=== PATIENT | female | born 1940 | race Caucasian/White ===

== ENCOUNTER 2023-05-10 07:10 | Day surgery (SDC) | payer OTHER, SELFPAY ==
[2023-05-10 08:01] VITALS: BMI 23.9
--- NOTE | 2023-05-10 10:30 | ITS.CL.CARDI ---
Addendum entered and electronically signed by Albert Amin MD 05/10/23 10:35:
Correction:
200 joule and subsequent 360 joule biphasic synchronized shocks were delivered
Original Note:
Barrel Drainer - Cardioversion
Cardioversion
Procedure Report:
Procedure: JORGE-guided electrical cardioversion
Pre-operative diagnosis: Persistent atrial fibrillation
Post-operative diagnosis: Persistent atrial fibrillation status post DC cardioversion to sinus rhythm
Anesthesia: MAC
Attending Physician: Albert Amin MD
Procedure Description: The patient was brought to the electrophysiology laboratory in the fasting state. Informed consent was obtained from the patient prior to the start of the procedure. Adherence to anticoagulation was confirmed. Electrodes were
placed on the patient and connected to an external defibrillator. Monitoring of blood pressure, ECG tracings, and pulse oximetry was initiated. The pads were applied to the patient in the anterior and posterior positions. The patient was sedated by
the anesthesiologist. A JORGE (reported separately) was performed prior to the cardioversion. No left atrial or left atrial appendage thrombus was seen. After the JORGE probe was removed 300 joule, 360 joule and subsequent 360 biphasic synchronized
shocks were delivered to the patient under MAC anesthesia. Sinus rhythm was successfully restored. The patient recovered uneventfully from MAC anesthesia. There were no immediate post-procedure complications. The patient left the lab in good
condition. The attending physician was present throughout the entire procedure.
Impression: Successful JORGE-guided direct current cardioversion with church of sinus rhythm after 300 joule, 360 joule and subsequent 360 joule biphasic synchronized shocks.
== END 2023-05-10 10:00 | disposition home or self-care (01) ==
LOC: CATH 07:10
PROVIDERS: ATTENDING PHYSICIAN Internal Medicine Cardiovascular Disease; FAMILY PHYSICIAN Family Medicine; OTHER PHYSICIAN Internal Medicine Interventional Cardiology
DX: I48.19 Other persistent atrial fibrillation (principal); Z86.73 Personal history of transient ischemic attack (TIA), and cerebral infarction without residual deficits; I08.1 Rheumatic disorders of both mitral and tricuspid valves; I70.0 Atherosclerosis of aorta
CPT/HCPCS: 93312; 93320; 93325; 92960; 93005

== ENCOUNTER → 2023-06-21 10:28 | Outpatient (REF) | payer OTHER, SELFPAY | LOC: RAD 10:28 | PROVIDERS: ATTENDING PHYSICIAN Family Medicine | DX: R05.9 Cough, unspecified (principal) | CPT/HCPCS: 71046 ==

== ENCOUNTER 2023-08-27 05:55 | Day surgery (SDC) | payer OTHER, SELFPAY ==
[2023-08-14 10:50] LABS: % Basophils 0.4 % (0-2); % Immature Granulocytes 0.3 % (0-0.5); % Lymphocytes 18.3 % (20.5-51.1); % Monocytes 8.6 % (1.7-9.3); % Neutrophils 71.4 % (42.2-75.2); Absolute Eosinophils 0.1 10^3/uL (0-0.7); Absolute Lymphocytes 1.3 10^3/uL (1.2-3.4); Absolute Monocytes 0.6 10^3/uL (0.1-0.6); Absolute Neutrophils 5.2 10^3/uL (1.4-6.5); Hematocrit 45.6 % (37.0-47.0); Hemoglobin 14.9 g/dL (12.0-16.0); Mean Corp Hgb Conc. 32.7 g/dL (33.0-37.0); Mean Corpuscular Hgb 29.2 pg (27.0-31.0); Mean Corpuscular Volume 89.2 fL (81.0-99.0); Mean Platelet Volume 11.9 fL (7.4-10.4); Nucleated Red Blood Cells % 0 %; Platelet Count 164 10^3/uL (130-400); Red Blood Cell Count 5.11 10^6/uL (4.20-5.40); Red Cell Dist. Width 15.8 % (11.5-14.5); White Blood Cell Count 7.2 10^3/uL (4.8-10.8)
[2023-08-14 10:58] LABS: INR 1.35; PT 16.7 Sec (11.4-14.6)
[2023-08-14 11:01] LABS: ALT (SGPT) 24 U/L (0-35); AST (SGOT) 25 U/L (14-36); Albumin 4.4 g/dl (3.5-5.0); Alkaline Phosphatase 103 U/L (38-126); Blood Urea Nitrogen 27 mg/dl (7-17); Calcium 9.6 mg/dl (8.4-10.2); Carbon Dioxide 29 mmol/L (22-30); Chloride 97 mmol/L (98-107); Glucose 98 mg/dl (70-99); Potassium 4.3 mmol/L (3.5-5.1); Sodium 133 mmol/L (135-145); Total Bilirubin 0.7 mg/dl (0.2-1.3); Total Protein 7.2 g/dl (6.3-8.2); eGFR > 60.00
[2023-08-14 12:31] VITALS: BMI 23.1
[2023-08-27] VITALS (21 sets, daily range): BP systolic 118–174; BP diastolic 63–142
[2023-08-27] MEDS: TYLENOL 1000 MG PO (07:04)
--- NOTE | 2023-08-27 07:22 | ITS.CL.ABL ---
Golf Cart Assembler - Ablation
Ablation
Procedure Report:
Primary Exhibitions And Collections Manager: Ruperto Arias MD
Procedure Date: 08/27/2023
Patient History:
Patient is a pleasant 83-year-old female with a past medical history significant for hypertension, hypercholesterolemia, osteoporosis, history of tobacco use, bladder cancer, polymyalgia rheumatica, and symptomatic persistent atrial fibrillation.
See H&P for complete details.
Indication:
Symptomatic persistent atrial fibrillation
Arrhythmia Specific History:
Prior Medical Therapies for Rate and Rhythm Control:
[ ] Beta-mariangel
X Calcium channel-mariangel
[ ] Amiodarone
[ ] Dronederone
[ ] Sotalol
[ ] Flecainide
[ ] Dofetilide
[ ] Options limited by bradycardia
[ ] Options limited by comorbid renal disease
Prior Procedural Therapies for AF/AFL:
X Cardioversion
[ ] Pulmonary Vein Isolation
[ ] Posterior Wall Isolation
[ ] Additional lines (Specify)
[ ] Surgical Hall-MAZE or PVI (Specify)
Procedure Performed:
[ ] AF ablation procedure (10390) -- includes LA/CS pacing, trans-septal, 3D mapping, + ICE
[ ] +IV drug (80380)
[ ] +Other Arrhythmia (31766)
[ ] +Other AF Line/ablation (74841)
Risks and expected recovery has been explained in detail. Alternative options have been explored, and in a shared-decision making fashion we have decided that this was the most appropriate procedure.
Method
NPO status confirmed. Grounding pad applied. Defibrillator pads applied. Continuous surface ECG, pulse oximetry, and blood pressure were monitored. Procedure was performed under general anesthesia, with anesthesia services.
Both groins were clipped, prepped with Chloraprep, and draped in sterile fashion. Time out was called. Local anesthesia administered with bupivacaine. The right and left femoral veins were accessed for catheter placement, using ultrasound guidance,
micro-puncture needle/wire, and modified seldinger technique. 3 sheaths were placed. The following catheters were used:
[ ] Tacticath SE (D/F Curve) ablation catheter
X Viewflex 9Fr ICE catheter
X Inquiry decapolar 6Fr diagnostic catheter
[ ] CRD Hex 6Fr
[ ] Arctic Front Advance Cryoballoon ([ ]28mm[ ]23mm)
[ ] Achieve Advance mapping catheter ([ ]15mm[ ]20mm)
X FlexCath Contour 10 Fr with PulseSelect PFA Catheter
X Advisor HD Grid Mapping Catheter, SE
[ ] Acuson AcuNav 8 Fr ICE catheter
[ ]Other: [ ]
Intracardiac ultrasound (ICE) was carefully advanced into the right atrium to guide sheath placement over a J-wire, catheter placement, guide trans-septal puncture, identify potential complications, identify anatomic structures and ensure proper
contact between ablation catheter and tissue. A trace posterior located pericardial effusion behind RV and LV was noted at initiation of case and remained unchanged throughout the case and at case completion.
Heparin was given prior to trans-septal puncture. Heparin was given to achieve and maintain a target ACT of 300-400 seconds throughout the procedure.
Trans-septal access was performed under ICE guidance. The trans-septal puncture was performed with a SafeSept wire through a Brockenbrough needle assembly through the steerable sheath. The wire was visualized as it entered the LSPV and system
advanced under ICE guidance and fluoroscopy into the LA. The Brockenbrough needle assembly, SafeSept wire and sheath dilator were removed under negative pressure. LA pressure was measured and recorded. Coronary sinus activation demonstrated
irregular fast pattern consistent with atrial fibrillation no organized electrical activity.
ICE and 3D mapping was performed to identify relevant cardiac structures. A careful 3D map was created to assess for regions of low-voltage and abnormal electrogram signals using HD grid mapping catheter and PulseSelect catheter. Additional mapping
was performed as outlined below.
Prior to ablation, glycopyrrolate was provided. PulseSelect catheter was advanced over J-wire to the ostium of each vein. Pulmonary vein isolation was performed with ostial and antral lesions in a circumferential manner. Contact was visualized via
EAM, ICE, fluoroscopy, and EGM signals. Posterior wall isolation was performed by anchoring the J-wire within the pulmonary vein and placing the PulseSelect catheter in contact with the posterior wall as visualized by aforementioned methods.
Following completion of ablation lesions, sinus rhythm was restored during pulmonary vein isolation ablation and a post-ablation voltage/activation map was performed in sinus rhythm. Entrance and exit block were confirmed for each vein and the
posterior wall.
Catheter and sheath were removed from the left atrium and post-ablation intracardiac echo evaluation was consistent with pre-ablation with no changes and no change to the pericardial effusion and there is no left atrial thrombus or left ventricle
thrombus seen. Electrophysiology study was performed. Hemostasis was obtained with figure of 8 stitch for each groin and with manual pressure. Protamine was used for reversal.
Estimated Blood Loss
5-10 mL
Complications
None
Fluoroscopy: 2.5 minutes; 6.13 mGy; DAP 0.762
Baseline Intervals:
Rhythm: AF
QRS: 74 ms
Post-Procedure Intervals:
MO: 173 ms
QRS: 67 ms
QT: 393 ms
QTc: 400 ms
AVWB: 390 ms
AERP: 600/250 ms
Recommendations
- Bedrest with straight-leg precautions as ordered
- Admit with anticipate discharge home tomorrow after overnight observation
- Resume home medications as indicated
- Ok to resume anticoagulation tonight if patient and groin sites stable
- PPI daily for 30 days
- Plan for follow-up in office with Dr Arias
Chandan Madden,
Clinical Cardiac Gas Processing Plant Operator
cc: Ruperto Arias MD; Orlando Wall MD
[2023-08-27 08:42] LABS: ACT-LR - POC 302 Seconds (116-155)
[2023-08-27 08:54] LABS: ACT-LR - POC 398 Seconds (116-155)
[2023-08-27 09:12] LABS: ACT-LR - POC 276 Seconds (116-155)
[2023-08-27 09:32] LABS: ACT-LR - POC 395 Seconds (116-155)
[2023-08-27 09:54] LABS: ACT-LR - POC 155 Seconds (116-155)
--- NOTE | 2023-08-27 11:30 | PTCARENOTE ---
Received patient from Cardiac Service Developer. Patient is s/p ablation with Dr. Madden. Bilateral groin sites CDI. + Pulses, No Drainage currently Present.
Patient dipped to 89% on RA. Placed supplemental NC at 2L NC.
[2023-08-27] MEDS: LEXAPRO 20 MG PO (11:47)
[2023-08-27] MEDS: PROTONIX 40 MG PO (11:47)
--- NOTE | 2023-08-27 12:12 | CM ---
Reviewed chart. Met with Mrs. Valles and her daughter to review discharge plans. She states prior to admission she resides with her spouse and daughter in a one story home with one step to enter. She states prior to admission she was independent
with ambulation and adls. She states she does not have any DME in the home. She stats she has a prescription plan and uses [facility]. The discharge plan is to return home with her spouse and daughter when medically stable.
--- NOTE | 2023-08-27 16:07 | PTCARENOTE ---
Assumed care of Pt, A,A+O, denies pain. Bilat femoral dsgs D+I. No LE edema noted. palpable DP pulses.
[2023-08-27] MEDS: ELIQUIS 5 MG PO (17:08)
[2023-08-27] MEDS: CARDIZEM CD 240 MG PO (17:13)
[2023-08-27] MEDS: APRESOLINE 100 MG PO (19:24)
[2023-08-27] MEDS: XALATAN OPHTHALMIC SOLUTION 1 DROP BOTH EYES (19:25)
[2023-08-28 02:27] VITALS: BP 161/74
[2023-08-28 03:13] LABS: Hematocrit 41.2 % (37.0-47.0); Hemoglobin 13.8 g/dL (12.0-16.0); Mean Corp Hgb Conc. 33.5 g/dL (33.0-37.0); Mean Corpuscular Hgb 30.2 pg (27.0-31.0); Mean Corpuscular Volume 90.2 fL (81.0-99.0); Mean Platelet Volume 11.8 fL (7.4-10.4); Platelet Count 145 10^3/uL (130-400); Red Blood Cell Count 4.57 10^6/uL (4.20-5.40); Red Cell Dist. Width 15.9 % (11.5-14.5); White Blood Cell Count 11.4 10^3/uL (4.8-10.8)
[2023-08-28 03:36] LABS: Blood Urea Nitrogen 25 mg/dl (7-17); Calcium 8.5 mg/dl (8.4-10.2); Carbon Dioxide 26 mmol/L (22-30); Chloride 102 mmol/L (98-107); Estimated Creatinine Clearance 42 ml/min; Glucose 126 mg/dl (70-99); Magnesium 2.2 mg/dl (1.6-2.3); Potassium 4.9 mmol/L (3.5-5.1); Sodium 136 mmol/L (135-145); eGFR > 60.00
[2023-08-28 07:05] VITALS: BP 152/74
--- NOTE | 2023-08-28 07:24 | W.PN.CARDCBS ---
Addendum entered and electronically signed by Chandan Madden DO 08/28/23 10:40:
I saw and examined the patient.
The Flight Kitchen Manager's note was reviewed and I agree with the note.
Comment:
Patient resting comfortably in bed. No complaints. Patient denies any chest pain, shortness breath, lightheadedness, dizziness, near-syncope, syncope, or weakness. Patient notes no discomfort in the chest no discomfort groin sites. Telemetry
sinus rhythm, vital signs stable.
AAOx3, MAEE 06/22
RRR S1 S2 no murmurs
CTA bilat, non labored
soft abd, + bs
bilat groin sites without ht/bleeding, non tender
bilat extremities w/palpable distal pulses, no edema
A/P as below
Doing well post PVI
Continue uninterrupted oral anticoagulation
Continue diltiazem
Follow-up with Dr. Arias
Stable for discharge from CV standpoint
Original Note:
Today's Communication / Plan
-
continue eliquis
home today
Impression / Plan
-
PCP: Orlando Wall MD
CDY: Ghassan Arias MD
83 y/o w/PAF, associated w/SOB, fatigue, palpitations. Failed CVN. [id number], maintained on eliquis.
S/P PFA. Stable overnight on tele, NSR.
IMPRESSION:
PAF
S/P PFA, 08/27/23
HTN
HLD
Mod MR
PVD
PMR
RLL nodule, stable
Bladder Ca, s/p TURBT (2019)
Anxiety/Depression
Mild Hyponatremia
PLAN:
Tele- NSR w/3-5bt NSVT, no afib
Groin sites stable
resume eliquis
continue diltiazem
BP modestly elevated overnight- will give AM meds and monitor
Na+ stable today
Followup at [facility] arranged
home today
Progress Note - Auto Refinisher
Subjective
Date of Service: August 28, 2023
Denies cp/palps/dypsnea
oob ambulating
groin sites without pain
Objective
Labs:
08/28/23 02:26
08/28/23 02:26
Labs
Hgb 13.8 g/dL (12.0-16.0) 08/28/23 02:26
Hct 41.2 % (37.0-47.0) 08/28/23 02:26
Plt Count 145 10^3/uL (130-400) 08/28/23 02:26
PT 16.7 Sec (11.4-14.6) H 08/14/23 10:10
INR 1.35 08/14/23 10:10
Sodium 136 mmol/L (135-145) 08/28/23 02:26
Potassium 4.9 mmol/L (3.5-5.1) 08/28/23 02:26
BUN 25 mg/dl (7-17) H 08/28/23 02:26
Creatinine 0.9 mg/dL (0.6-1.0) 08/28/23 02:26
Glucose 126 mg/dl (70-99) H 08/28/23 02:26
Vital Signs and I&O:
Vital Signs
Temp Pulse Resp BP Pulse Ox
98.3 F 79 20 152/74 90
08/28/23 07:03 08/28/23 07:05 08/28/23 07:03 08/28/23 07:05 08/28/23 07:03
Vital Signs
Temp Pulse Resp BP Pulse Ox
98.3 F 79 20 152/74 90
08/28/23 07:03 08/28/23 07:05 08/28/23 07:03 08/28/23 07:05 08/28/23 07:03
Intake & Output
08/26/23 08/27/23 08/28/23 08/29/23
06:59 06:59 06:59 06:59
Output Total 525 / 525
Balance -525 / -525
Physical Exam
Physical Exam
AAOx3, MAEE 5/5
RRR S1 S2 no murmurs
CTA bilat, non labored
soft abd, + bs
bilat groin sites without ht/bleeding, non tender
bilat extremities w/palpable distal pulses, no edema
[2023-08-28] MEDS: APRESOLINE 100 MG PO (08:14)
[2023-08-28] MEDS: ELIQUIS 5 MG PO (08:14)
[2023-08-28] MEDS: PROTONIX 40 MG PO (08:14)
[2023-08-28] MEDS: LEXAPRO 20 MG PO (08:14)
[2023-08-28] MEDS: LIPITOR 40 MG PO (08:14)
--- NOTE | 2023-08-28 08:49 | W.DS.TRANS ---
DC Summary - Cnc Cutting Operator
-
Discharge Instructions:
Discharge Diagnosis/Procedures AFib, s/p ablation
Diet Low Cholesterol
Driving Restrictions No driving for 24 hours
Instructions:
Stand-Alone Forms: DC Instructions- Cath/EP Lab
Changes to Home Medications: No
Discharge Medications:
DC Medications w/original date entered in [facility]
ascorbic acid (vitamin C) 1,000 mg tablet (Vitamin C) 1,000 mg PO BID 05/18/19
atorvastatin 10 mg tablet 40 mg PO DAILY 05/18/19
calcium carbonate (Calcium 500) 500 mg PO PRN PRN gerd 05/18/19
denosumab 60 mg/mL subcutaneous syringe (Prolia) 1 dose SC [id number] 05/18/19
hydralazine 25 mg tablet 100 mg PO BID 05/18/19
latanoprost 0.005 % eye drops 1 drp BOTH EYES HS ##0 05/18/19
magnesium 250 mg tablet 250 mg PO DAILY 05/18/19
apixaban 5 mg tablet (Eliquis) 5 mg PO BID 05/10/23
diltiazem HCl 120 mg capsule,extended release 24 hr 240 mg PO QPM 05/10/23
escitalopram oxalate 10 mg tablet (Lexapro) 20 mg PO DAILY 05/10/23
vit C 250 mg-vit E 90 mg-zinc 40 mg-copper 1 ms-rquacr-rwadxd capsule (PreserVision AREDS-2) 1 tab PO BID 05/10/23
acetaminophen 325 mg tablet 650 mg PO Q6H PRN pain 08/09/23
coenzyme Q10 200 mg capsule 200 mg PO BID 08/28/23
Home Medication Changes
Pending Results: No
== END 2023-08-28 11:50 | disposition home or self-care (01) ==
LOC: CATH 05:55
PROVIDERS: Nurse Practitioner; ATTENDING PHYSICIAN Internal Medicine Cardiovascular Disease; FAMILY PHYSICIAN Family Medicine; OTHER PHYSICIAN Internal Medicine Interventional Cardiology
DX: I48.19 Other persistent atrial fibrillation (principal); R06.02 Shortness of breath; R53.83 Other fatigue; R00.2 Palpitations; Z79.01 Long term (current) use of anticoagulants; I10 Essential (primary) hypertension; E78.5 Hyperlipidemia, unspecified; I08.1 Rheumatic disorders of both mitral and tricuspid valves; I73.9 Peripheral vascular disease, unspecified; Z87.19 Personal history of other diseases of the digestive system; K57.90 Diverticulosis of intestine, part unspecified, without perforation or abscess without bleeding; M48.00 Spinal stenosis, site unspecified; M19.90 Unspecified osteoarthritis, unspecified site; M35.3 Polymyalgia rheumatica; Z85.51 Personal history of malignant neoplasm of bladder; N32.81 Overactive bladder; H40.9 Unspecified glaucoma; F41.9 Anxiety disorder, unspecified; F32.A Depression, unspecified; Z87.891 Personal history of nicotine dependence; E87.1 Hypo-osmolality and hyponatremia; I48.0 Paroxysmal atrial fibrillation; R91.1 Solitary pulmonary nodule
CPT/HCPCS: C1732; C1894; C1733; C1766; C1769; 36415; 75572; 76937; 80048; 80053; 83735; 85025; 85027; 85347; 85610; 86850; 86900; 86901; 93005; 93656; Q9967

== ENCOUNTER 2023-08-31 10:44 | Emergency (ER) | payer OTHER, SELFPAY ==
[2023-08-31 10:50] VITALS: BP 110/45
[2023-08-31 11:44] VITALS: BMI 23.6
[2023-08-31 11:50] VITALS: BP 148/92
[2023-08-31 12:00] VITALS: BP 134/99
--- NOTE | 2023-08-31 12:15 | ED.GENMED ---
History of Present Illness
General
Chief Complaint: Fall
Source: patient
Exam Limitations: none
Time Seen by Provider: 08/31/23 12:14
History of Present Illness
History of Present Illness:
See MDM
Past History
Past History
ED Past Medical History: Arrthythmia and HTN
Social History
Tobacco: Non-smoker
Alcohol: None
Personal:
Phy Exam
Physical Exam
Physical Exam:
See MDM
Course
Orders/Labs/Results
Orders:
Orders
08/31/23 10:54
EKG [Electrocardiogram (*1)] Urgent
Reason for Study: Tachycardia
EKG- Treatment ONCE
08/31/23 11:58
Ribs, Right 3 View W/PA Chest [CR Ribs-right 3 Vw W/pa Chest*] Urgent
Comment:
Reason For Exam: fall, right rib pain
08/31/23 12:29
Diltiazem HCl [Cardizem] 15 mg IV NOW STA
08/31/23 12:45
Complete Blood Count/With Diff Urgent
Comprehensive Metabolic Panel Urgent
Abnormal Lab Results
08/31/23
12:45
RDW 15.8 H %
(11.5-14.5)
MPV 11.6 H fL
(7.4-10.4)
Absolute Neuts (auto) 6.8 H 10^3/uL
(1.4-6.5)
Absolute Lymphs (auto) 1.1 L 10^3/uL
(1.2-3.4)
Absolute Monos (auto) 0.8 H 10^3/uL
(0.1-0.6)
Neutrophils % 76.7 H %
(42.2-75.2)
Lymphocytes % 13.0 L %
(20.5-51.1)
Chloride 94 L mmol/L
(98-107)
BUN 26 H mg/dl
(7-17)
Glucose 106 H mg/dl
(70-99)
08/31/23 12:45
08/31/23 12:45
Vital Signs
Initial and Last Documented VS:
Initial Vital Signs
Temp Pulse Resp BP Pulse Ox
97.6 F 145 16 110/45 96
08/31/23 10:50 08/31/23 10:50 08/31/23 10:50 08/31/23 10:50 08/31/23 10:50
Last Documented Vital Signs
Temp Pulse Resp BP Pulse Ox
97.7 F 96 18 117/66 94
08/31/23 11:50 08/31/23 13:13 08/31/23 13:13 08/31/23 13:13 08/31/23 13:13
MDM/Problems Addressed
Differential Diagnosis Includes:
HPI and MDM Narrative:
83-year-old female presenting with right-sided chest and rib pain. Patient tripped while going up the steps. She fell on her right side on the wooden deck. She denies head injury. Pain is worse with inspiration. She is currently on Eliquis and
had an ablation for A-fib this past week.
Given age and complaint, will obtain x-rays to rule out rib fractures
Physical exam
General: Well appearing and non-toxic
HEENT: protecting airway
Neck: appears supple
CV: No evidence of cyanosis. Tachycardic and irregular
Resp: No accessory muscle use. Lungs clear
Abd: Non-distended
Extremities: No deformities
Neuro: alert
Psych: Normal affect
Skin: Intact
Problems Addressed including Acute and Chronic Conditions affecting care:
1. Rib contusion versus fracture
Acuity: acute
Prognosis: stable
Details: Will obtain x-rays to rule out fracture and pneumothorax
2. A fib
Acuity: chronic
Prognosis: stable
Details: Patient given IV Cardizem and attempt to chemically cardiovert. It did rate control her
Updates
After IV Cardizem, heart rate is decreasing. Cardiology curb sided. We discussed increasing her Cardizem to 360 at night. There is always the potential to admit for amiodarone and Tikosyn but they want to at least give her a week or so after the
procedure to see where her rhythm will be. Family and patient are happy with this plan and comfortable with this plan
Differential Diagnosis (but not limited to):
Testing considered:
Drug therapy (if applicable): OTC meds, please see d/c instruction regarding Rx drugs
Amount and/or Complexity of Data Reviewed
Clinical info obtained from: Patient
External data reviewed: N/A
Labs I independently reviewed (but not limited to): hgb stable
Radiology: X-ray independently reviewed: Chest x-ray clear without fractures
Pulse Ox: not hypoxic
EKG independently reviewed: A flutter, normal axis, no STEMI
Delivery Merchandiser: A-fib
Critical Care: N/A
Risk of Complication:
Social Determinants of health: Good social support
Discussed with other providers: Cardiology
Escalation of Care includes Admit/Obs: After being observed in the Emergency Department, pt stable for discharge.
Occasional wrong word or 'sound a like' substitutions may have occurred due to the inherent limitations of voice recognition software. Read the chart carefully and recognize, using context, where substitutions have occurred.
*Critical Care Note
Total Time (30-74mins, 75-104mins- exclusive of procedures): Not Applicable
ED Attending Note
-
Portions of this chart may have been created with voice recognition software.� Occasional wrong word or��sound alike� substitutions may have occurred due to the inherent limitations of voice recognition software.
Discharge Plan
Departure
Patient Disposition: Home (Routine Discharge)
Date of Disposition: 08/31/23
Time of Disposition: 13:17
Patient with high blood pressure during this ER visit?: No
Discharge Problem:
A-fib
Instructions: Chest Pain [facility] Follow Up
Prescriptions:
New
diltiazem HCl 120 mg capsule,extended release 24 hr
120 mg PO HS Qty: 14 0RF
No Action
latanoprost 0.005 % Drops
1 drp BOTH EYES HS Qty: 0
ascorbic acid (vitamin C) [Vitamin C] 1,000 MG tablet
1,000 mg PO BID
atorvastatin 10 MG tablet
40 mg PO DAILY
hydralazine 25 MG tablet
100 mg PO BID
calcium carbonate [Calcium 500] 500 MG tablet,chewable
500 mg PO PRN PRN (Reason: gerd)
magnesium 250 MG tablet
250 mg PO DAILY
Prolia 60 MG/ML syringe
1 dose SC [id number]
Eliquis 5 mg Tablet
5 mg PO BID
escitalopram oxalate [Lexapro] 10 mg Tablet
20 mg PO DAILY
diltiazem HCl 120 mg Capsule,Extended Release 24hr
240 mg PO QPM
PreserVision AREDS-2 250-90-40-1 mg Capsule
1 tab PO BID
acetaminophen 325 mg Tablet
650 mg PO Q6H PRN (Reason: pain)
coenzyme Q10 200 mg Capsule
200 mg PO BID
Referrals:
Orlando Wall MD [Family Provider] -
Activity Restrictions/Additional Instructions:
Per our discussion with cardiology, they want to increase your diltiazem dosing at nighttime. Please take your 240 mg diltiazem in addition to the newly prescribed 120 mg diltiazem for a total of 360 mg diltiazem. I have only written 2 weeks of
the 120 mg capsules. Please call your ham smoker first thing Saturday morning to explain that you are back in A-fib. They may want to continue with this regimen or possibly change the medications altogether.
Please return for any worsening symptoms.
You may return at any time if you have further concerns.
You were placed on the cardiac callback tracker. Someone from their office should call you in the next few days. If you do not hear from them in the next few days, please give them a call.
Thank you for choosing [facility].
Interventions
Interventions:
*Risk Screen - Suicide Last Done: 08/31/23 11:45
*General Assessment Last Done: 08/31/23 11:45
*Neglect/Abuse Screening Last Done: 08/31/23 11:45
*ED COVID-19 Vaccine History Last Done: 08/31/23 10:50
ED-Musculoskeletal Assessment Last Done: 08/31/23 11:51
ED- Neurological Assessment Last Done: 08/31/23 11:51
ED-Skin Assessment Last Done: 08/31/23 11:51
Discharge Date and Time
Print Language: GABONESE
[2023-08-31 12:30] VITALS: BP 156/104
[2023-08-31] MEDS: CARDIZEM 15 MG IV (12:48)
[2023-08-31 13:04] LABS: % Basophils 0.2 % (0-2); % Eosinophils 0.7 % (0-6); % Immature Granulocytes 0.5 % (0-0.5); % Monocytes 8.9 % (1.7-9.3); % Neutrophils 76.7 % (42.2-75.2); Absolute Eosinophils 0.1 10^3/uL (0-0.7); Absolute Lymphocytes 1.1 10^3/uL (1.2-3.4); Absolute Monocytes 0.8 10^3/uL (0.1-0.6); Absolute Neutrophils 6.8 10^3/uL (1.4-6.5); Hematocrit 46.3 % (37.0-47.0); Hemoglobin 15.6 g/dL (12.0-16.0); Mean Corp Hgb Conc. 33.7 g/dL (33.0-37.0); Mean Corpuscular Hgb 29.9 pg (27.0-31.0); Mean Corpuscular Volume 88.9 fL (81.0-99.0); Mean Platelet Volume 11.6 fL (7.4-10.4); Nucleated Red Blood Cells % 0 %; Platelet Count 154 10^3/uL (130-400); Red Blood Cell Count 5.21 10^6/uL (4.20-5.40); Red Cell Dist. Width 15.8 % (11.5-14.5); White Blood Cell Count 8.8 10^3/uL (4.8-10.8)
[2023-08-31 13:05] LABS: ALT (SGPT) 35 U/L (0-35); AST (SGOT) 31 U/L (14-36); Albumin 4.4 g/dl (3.5-5.0); Alkaline Phosphatase 98 U/L (38-126); Blood Urea Nitrogen 26 mg/dl (7-17); Calcium 9.8 mg/dl (8.4-10.2); Carbon Dioxide 29 mmol/L (22-30); Chloride 94 mmol/L (98-107); Estimated Creatinine Clearance 46 ml/min; Glucose 106 mg/dl (70-99); Potassium 4.5 mmol/L (3.5-5.1); Sodium 135 mmol/L (135-145); Total Protein 7.1 g/dl (6.3-8.2); eGFR > 60.00
[2023-08-31 13:13] VITALS: BP 117/66
== END 2023-08-31 13:29 | disposition home or self-care (01) ==
LOC: EMR 10:44
PROVIDERS: EMERGENCY PHYSICIAN Student in an Organized Health Care Education/Training Program; FAMILY PHYSICIAN Family Medicine
DX: R07.81 Pleurodynia (principal); I48.91 Unspecified atrial fibrillation; W17.89XA Other fall from one level to another, initial encounter; I10 Essential (primary) hypertension; R00.0 Tachycardia, unspecified; Z79.01 Long term (current) use of anticoagulants; Z98.890 Other specified postprocedural states; Z88.8 Allergy status to other drugs, medicaments and biological substances
CPT/HCPCS: 99284; 96374; 71101; 80053; 85025; 93005

== ENCOUNTER → 2023-10-02 06:43 | Day surgery (SDC) | payer OTHER, SELFPAY ==
[2023-10-02 08:05] VITALS: BMI 25.2
--- NOTE | 2023-10-02 08:17 | ITS.CL.CARDI ---
Partner Marketing Manager - Cardioversion
Cardioversion
Procedure Report:
Date of Procedure:
Procedure: Cardioversion
Indication: Symptomatic atrial flutter
Performing Physician: Jose Valentin MD
Technique: The patient was brought to the holding area. Signed informed consent was obtained. A time out was called and performed. The patient was anesthetized by the anesthesia service. Anticoagulation status was reviewed and appropriate. R2 pads
were placed anteriorly and posteriorly. A 200 J synchronized biphasic shock restored normal sinus rhythm without significant bradycardia. There were no complications.
Conclusion: Uncomplicated cardioversion from atrial flutter to sinus rhythm.
Recommendation: Routine post cardioversion care. Continue snf anticoagulation.
== END ==
LOC: CATH 06:43
PROVIDERS: ATTENDING PHYSICIAN Internal Medicine Cardiovascular Disease; FAMILY PHYSICIAN Family Medicine; OTHER PHYSICIAN Internal Medicine Interventional Cardiology
DX: I48.92 Unspecified atrial flutter (principal); I48.19 Other persistent atrial fibrillation; I10 Essential (primary) hypertension; E78.5 Hyperlipidemia, unspecified; I08.1 Rheumatic disorders of both mitral and tricuspid valves; Z85.51 Personal history of malignant neoplasm of bladder; Z87.891 Personal history of nicotine dependence; Z79.01 Long term (current) use of anticoagulants
CPT/HCPCS: 92960; 93005

== ENCOUNTER → 2023-11-18 08:17 | Outpatient (REF) | payer OTHER, SELFPAY | LOC: DHCBC/DCA 08:17 | PROVIDERS: ATTENDING PHYSICIAN Nurse Practitioner; FAMILY PHYSICIAN Family Medicine | DX: I10 Essential (primary) hypertension (principal) | CPT/HCPCS: 78452; 93017; A9500; J2785 ==

== ENCOUNTER → 2024-01-27 10:07 | Outpatient (REF) | payer OTHER, SELFPAY | LOC: RAD 10:07 | PROVIDERS: ATTENDING PHYSICIAN Family Medicine | DX: R74.8 Abnormal levels of other serum enzymes (principal) | CPT/HCPCS: 78306; A9503 ==

== ENCOUNTER → 2024-03-06 10:43 | Outpatient (REF) | payer OTHER, SELFPAY | LOC: DHVS 10:43 | PROVIDERS: ATTENDING PHYSICIAN Surgery Vascular Surgery; FAMILY PHYSICIAN Family Medicine | DX: I73.9 Peripheral vascular disease, unspecified (principal) | CPT/HCPCS: 93922; 93925 ==

== ENCOUNTER → 2024-03-14 10:12 | Outpatient (REF) | payer OTHER, SELFPAY | LOC: MRI 3T 10:12 | PROVIDERS: ATTENDING PHYSICIAN Family Medicine | DX: M48.07 Spinal stenosis, lumbosacral region (principal); M54.50 Low back pain, unspecified; Z91.81 History of falling | CPT/HCPCS: 72148 ==